=== PATIENT | female | born 1970 | race Caucasian/White ===

== ENCOUNTER 2017-02-09 19:26 | Emergency (ER) | payer OTHER ==
--- NOTE | ~2017-02-09 | CR72 ---
[facility] A Service of [facility] & [facility] RADIOLOGY TEXT RESULTS PATIENT: BERTA RENDON LOCATION: CFTX : 68 UNIT #: [id number] AGE: [address]: Shirley Aleman APRN SEX: F ORDER DR: [id number] [facility] [address] [place], [place] [address] [id number] E MR#: [id number] Acc #: [id number] NAME: BERTA RENDON : 1970 SEX: F STUDY DATE/TIME: 02/09/2017 22:19 UNIT: [facility] ROOM: STUDY DESCRIPTION: CR Chest Single View Portable Attending Physician: Shirley Aleman A.P.R.N. Ordering Physician: Shirley Aleman A.P.R.N. Primary Care Physician: Coco Call A.P.R.N. MEDICAL IMAGING REPORT This report is preliminary unless electronic signature is present EXAM Portable chest. HISTORY Cough, congestion, weakness x3 days. COMPARISON 12/22/14. FINDINGS A single AP portable view of the chest shows both lungs to be clear. The heart is normal in size. The mediastinal contour is normal. No significant bone abnormalities are seen. IMPRESSION Normal portable chest. Dictated by... Gianfranco Younger M.D. THIS IS AN ELECTRONICALLY VERIFIED REPORT Gianfranco Younger M.D. at 02/10/2017 3:11 PM Ciera TD: 02/10/2017 11:01 JOB #: [id number] MEDICAL IMAGING REPORT Page 1 of 1 COPY
[~2017-02-09 19:26] MED LIST: ALBUTEROL17 GM INH; AUGMENTIN875 M1 PO; BACTRIM DS TABL1 TA1 PO; CLEOCIN150 M2 PO; DARVOCET-N 1001 TAB PO; DIFLUCAN PO; FLEXERIL10 MG PO; MACROBID100 M1 PO; MOBIC15 MG PO; MUCINEX1200 MG/BO PO; NO MEDICATIONS; NYQUIL D COLD295 ML PO; PERCOCET5/325 PO; PHENERGAN DM PO; PROZAC PO; PROZAC40 M1 PO; PROZAC40 MG PO; PYRIDIUM PO; ROBAXIN500 MG PO; TESSALON200 MG PO; TRAMADOL HCL50 M2 PO; VICODIN 5/1 TAB 5/50 PO; VICODIN 5/500 T1 TAB PO; VOLTAREN50 MG PO; VOLTAREN75 MG PO; XANAX2 MG PO; ZITHROMAX PO; [UNRECOGNIZED DRUG - OTHER]
[2017-02-09 21:30] LABS: URINE SOURCE CLEAN CATCH
[2017-02-09 21:54] LABS: URINE APPEARANCE CLEAR; URINE BILIRUBIN NEG (NEG); URINE BLOOD NEG (NEG); URINE COLOR YELLOW; URINE GLUCOSE NEG (NEG); URINE KETONE NEG (NEG); URINE LEUKOCYTE ESTERASE 2+ (NEG); URINE NITRATE NEG (NEG); URINE PH 6.5 (5-8); URINE PROTEIN NEG (NEG)
[2017-02-09 21:55] LABS: CULTURE INDICATED? YES; U HYALINE CASTS AUWI 0-2 /[LPF]; URBCS1 AUWI 0-2 /[HPF] (0-2); URINE BACTERIA AUWI 1+ (NEGATIVE); URINE SQUAMOUS EPITHELIAL CELL MOD /[HPF]
[2017-02-09 22:11] LABS: AMPHETAMINE NEG (NEG); BARBITURATES NEG (NEG); BENZODIAZEPINES NEG (NEG); COCAINE NEG (NEG); MARIJUANA NEG (NEG); OPIATES POS (NEG); TRICYCLIC ANTIDEPRESSANTS NEG (NEG); U METHADONE NEG (NEG)
[2017-02-09 22:21] LABS: INFLUENZA A NEG (NEG); INFLUENZA B NEG (NEG)
== END 2017-02-09 23:05 | disposition home or self-care (01) ==
LOC: CED 19:26 → CFTX 19:26
PROVIDERS: Nurse Practitioner
DX: J40 Bronchitis, not specified as acute or chronic (principal); J06.9 Acute upper respiratory infection, unspecified; N39.0 Urinary tract infection, site not specified; F41.9 Anxiety disorder, unspecified; F31.9 Bipolar disorder, unspecified; F17.210 Nicotine dependence, cigarettes, uncomplicated; Z79.899 Other long term (current) drug therapy
CPT/HCPCS: 71010; 80307; 81003; 84703; 87086; 87651; 87804; 96372; 99283; J1885

== ENCOUNTER 2017-02-16 22:15 | Emergency (ER) | payer OTHER | END 2017-02-17 01:05 | disposition left against medical advice (07) | LOC: CED 22:15 | DX: Z53.21 Procedure and treatment not carried out due to patient leaving prior to being seen by health care provider (principal) ==